=== PATIENT | female | born 1990 | race Caucasian/White ===

== ENCOUNTER 2018-10-12 14:51 | Emergency (ER) | payer OTHER ==
[2018-10-12 14:56] VITALS: BP 111/77; PULSE 70; RESP 18; TEMP 98.1
[2018-10-12] MEDS ORDERED: IBUPROFEN 600 MG TAB PO STA (15:36)
--- NOTE | 2018-10-12 15:54 | XR ---
EXAMINATION TYPE: XR hand complete LT DATE OF EXAM: 10/12/2018 COMPARISON: NONE HISTORY: Pain TECHNIQUE: Three views are submitted. FINDINGS: There is a comminuted displaced fracture involving the base proximal phalanx third digit.
--- NOTE | 2018-10-12 16:58 | ED ---
General Adult HPI - General Chief complaint: Extremity Injury, Upper Stated complaint: Finger injury Time Seen by Provider: 10/12/18 14:59 Source: patient, RN notes reviewed Mode of arrival: ambulatory Limitations: no limitations - History of Present Illness Initial comments: 27-year-old female presents to the emergency department for a chief complaint of fracture in the left third digit 2 days. Patient states she bent down to feed her cats and fell onto the left hand. She states she thought her finger was dislocated so she put it back into place. However patient states that the ring around her finger is now unable to be removed due to the swelling. She states she tried to go to a jeweler but they cannot get it off. Denies any other injuries. Denies hitting her head.Patient has no other complaints at this time including shortness of breath, chest pain, abdominal pain, nausea or vomiting, headache, or visual changes. - Related Data Allergies Allergy/AdvReac Type Severity Reaction Status Date / Time Penicillins Allergy Rash/Hives Verified 10/12/18 14:56 Review of Systems ROS Statement: Those systems with pertinent positive or pertinent negative responses have been documented in the HPI. ROS Other: All systems not noted in ROS Statement are negative. Past Medical History Past Medical History: No Reported History History of Any Multi-Drug Resistant Organisms: None Reported Past Surgical History: No Surgical Hx Reported Past Psychological History: No Psychological Hx Reported Smoking Status: Never smoker Past Alcohol Use History: Occasional Past Drug Use History: None Reported General Exam Limitations: no limitations General appearance: alert, in no apparent distress Head exam: Present: atraumatic, normocephalic, normal inspection Eye exam: Present: normal appearance, PERRL, EOMI. Absent: scleral icterus, conjunctival injection, periorbital swelling ENT exam: Present: normal exam, mucous membranes moist Neck exam: Present: normal inspection. Absent: tenderness, meningismus, lymphadenopathy Respiratory exam: Present: normal lung sounds bilaterally. Absent: respiratory distress, wheezes, rales, rhonchi, stridor Cardiovascular Exam: Present: regular rate, normal rhythm, normal heart sounds. Absent: systolic murmur, diastolic murmur, rubs, gallop, clicks Extremities exam: Present: tenderness (Tenderness over the proximal phalanx of the left third digit), normal capillary refill (Neel refill less than 2 seconds in the left third digit, radial pulse 2+ in the left upper extremity), joint swelling (Significant edema noted to the left third finger), other (There is a ring on the left third digit that is unable to be removed due to swelling). Absent: full ROM (Limited range of motion of the MCP joint of the left third digit) Neurological exam: Present: alert, oriented X3, CN II-XII intact Psychiatric exam: Present: normal affect, normal mood Course Vital Signs 10/12/18 14:52 Temperature 98.1 F Pulse Rate 70 Respiratory 18 Rate Blood Pressure 111/77 O2 Sat by Pulse 100 Oximetry Procedures - Orthopedic Splinting/Casting Injury #1 Side: left Upper Extremity Injury Location: hand Upper Extremity Immobilizer: volar splint Additional Comments: neurovascular intact after the splint applied. Medical Decision Making - Medical Decision Making 19-year-old female presents to the emergency determine for a chief complaint of left finger pain. Patient fell the other day while feeding her cats. No other injuries. Patient unable to the remove the ring. Ring was removed with a ring clippers on the back of raptor scissors after patient was unable to tolerate using the battery-operated ring cutters. X-ray was then obtained which showed a comminuted displaced fracture involving the base of the partial fillings of the third digit. This was splinted in a volar splint. Patient was given the name of orthopedist and will follow up with primary care. She will return here if she has worsening symptoms. Disposition Clinical Impression: Finger fracture, left Disposition: HOME SELF-CARE Condition: Good Instructions (If sedation given, give patient instructions): Finger Fracture (ED) Additional Instructions: Please take Tylenol for pain. Rest ice and elevate the left hand. Keep splint in place. Do not get splint wet. Follow-up with orthopedics in one to 2 days. Return here to the emergency department if you have any worsening symptoms. Is patient prescribed a controlled substance at d/c from ED?: No Referrals: Taylor Ibrahim MD [Primary Care Provider] - 1-2 days Brandon Ramos DO [Medical Doctor] - 1-2 days Niles De León DO [Doctor of Osteopathic Medicine] - 1-2 days Liu Callejas MD [STAFF PHYSICIAN] - 1-2 days Time of Disposition: 16:56
== END 2018-10-12 17:25 | disposition home or self-care (01) ==
LOC: EC 14:51
DX: S62.613A Displaced fracture of proximal phalanx of left middle finger, initial encounter for closed fracture (principal); Z88.0 Allergy status to penicillin; W19.XXXA Unspecified fall, initial encounter; W49.04XA Ring or other jewelry causing external constriction, initial encounter; Y93.K9 Activity, other involving animal care
CPT/HCPCS: 29125; 99283